=== PATIENT | male | born 1955 | race Caucasian/White ===

== ENCOUNTER 2025-08-27 11:30 | Emergency (ER) | payer MEDICARE, BC ==
[2025-08-27 12:21] LABS: BASOPHILS ABSOLUTE AUTO 0.1 K/mm3 (0.0-0.2); BASOPHILS PERCENT AUTO 0.6 % (0.0-1.0); EOSINOPHILS ABSOLUTE AUTO 0.4 K/mm3 (0.0-0.4); EOSINOPHILS PERCENT AUTO 4.9 % (0.0-6.0); IMMATURE GRAN ABSOLUTE AUTO 0.02 K/mm3 (0.00-0.05); IMMATURE GRAN PERCENT AUTO 0.3 % (0.0-0.4); LYMPHOCYTES ABSOLUTE AUTO 1.5 K/mm3 (1.0-4.8); LYMPHOCYTES PERCENT AUTO 19.8 % (24.0-44.0); MEAN PLATELET VOLUME 10.0 fl (9.4-12.4); MONOCYTES ABSOLUTE AUTO 0.8 K/mm3 (0.0-0.8); MONOCYTES PERCENT AUTO 9.9 % (0.0-8.0); NEUTROPHILS ABSOLUTE AUTO 5.0 K/mm3 (1.8-7.7); NEUTROPHILS PERCENT AUTO 64.5 % (41.0-71.0); NRBC ABSOLUTE 0.00 (0.00-0.02); NRBC PERCENT 0.0 % (0.0-0.2); PLATELET COUNT,PLT 236 K/mm3 (150-400); RED BLOOD CELL COUNT 5.34 M/mm3 (4.52-5.90); WHITE BLOOD CELL COUNT,WBC 7.79 K/mm3 (3.9-11.3)
[2025-08-27 12:55] LABS: A/G RATIO 0.7 (1-2); ALANINE AMINOTRANSFERASE,ALT 53.0 U/L (16-63); ASPARTATE AMNIOTRANSFERASE,AST 29.0 U/L (15-37); BILIRUBIN TOTAL 0.3 mg/dL (0.2-1.0); BLOOD UREA NITROGEN,BUN 28.0 mg/dL (7-18); CARBON DIOXIDE,CO2 26.0 mEq/L (21-32); CHLORIDE,CL 107.0 mEq/L (98-107); CREATINE KINASE,CK 74.0 U/L (39-308); CREATININE 1.9 mg/dL (0.7-1.3); EST CRCL DRUG DOSING (CG) 39.63 mL/min; ESTIMATED GFR 38.0 mL/min (>60); POTASSIUM,K 4.0 mEq/L (3.5-5.1); PROTEIN TOTAL,TP 8.3 g/dl (6.4-8.2); SODIUM,NA 141.0 mEq/L (136-145); TROPONIN I HIGH SENSITIVITY 15.0 pg/mL (<=76)
[2025-08-27 12:56] LABS: GLUCOSE RANDOM 96.0 mg/dL (70-99)
== END 2025-08-27 14:52 | disposition home or self-care (01) ==
LOC: JD.ED 11:30
DX: I25.10 Atherosclerotic heart disease of native coronary artery without angina pectoris (principal); R20.2 Paresthesia of skin; Z79.82 Long term (current) use of aspirin; Z79.899 Other long term (current) drug therapy
CPT/HCPCS: 36415; 71045; 71045-26; 80053; 82550; 83690; 83735; 83880; 84484; 85025; 93005; 93010; 99283; 99285